=== PATIENT | male | born 1955 | race Caucasian/White ===

== ENCOUNTER 2016-03-20 08:05 | Observation (INO) | payer OTHER ==
[2016-03-20] VITALS (8 sets, daily range): BP systolic 122–150; BP diastolic 80–103; PULSE 74–96; RESP 12–21; O2SAT 90–97
[~2016-03-20] VITALS: Ht 180.3 cm; Wt 118.3 kg
[~2016-03-20 08:05] MED LIST: IBUP800T28 PO
--- NOTE | 2016-03-20 08:08 | ED.REPORT ---
HPI-Stroke / CVA Mar 20, 2016 ED Provider: Dr. Angeol Pt is a 60 year old male who presents to the ED via EMS with concerns for blurred vision, lateralizing weakness and a headache that started around 0500 this morning. He reports that he woke up this morning with a headache and got out of bed to get some Aleve. He reports that he then got on the computer and realized that he was unable to read the screen, which is not normal for him. Pt states that he went to go back to bed, and when he started walking he began to feel like he was going to faint. He states that he told his about his symptoms, and she gave him a couple of baby Aspirin. Once he called the EMS, he realized that his left arm was weak and tremulous. He denies any headache at the moment, and is now able to read appropriately. Nursing Notes Stated Complaint: R/O CVA Chief Complaint: Possible Stroke Nursing Notes Reviewed: Yes Allergies: Coded Allergies: Penicillins (Verified Allergy, Unknown, 01/24/14) Sulfa (Sulfonamide Antibiotics) (Verified Allergy, Unknown, 01/24/14) clindamycin (Verified Allergy, Unknown, 04/27/14) Scheduled PRN Ibuprofen (Ibuprofen) 800 Mg Tablet 800 MG PO TID PRN PRN For Pain (Reported) General Time Seen by Provider: 08:23 Chief Complaint Weakness, Vision, reduced, Dizziness Left-sided Hx Obtained From: Patient Arrived By: Ambulance Time last known well 05:30 Sudden in Onset?: Yes Context of Onset: During sleep Symptom Duration: Intermittent Progression Since Onset: Resolved Severity: Maximum: No pain Similar Sx Previous: Yes Risk Factors )( TPA Administration/Criteria Stroke Thrombolytic Therapy : TPA Considered: Yes Neurologist Contacted: Yes Disc Risk/Benefit/Alternatives: Yes TPA Administered Intravenously: No, not indicated NIH Stroke Scale Level of Consciousness: Alert and responsive (0) Ask Month & Age: Both questions right (0) Open/Close Eyes/Hand Vendor Quality Supervisor: Performs both tasks (0) Horizontal EO Movements: None (0) Visual Roberts: No visual loss (0) Facial Palsy: Normal symmetry (0) Right Arm Motor Drift (10s): No drift 10 sec (0) Left Arm Motor Drift (10s): Drift, not touch bed (1) Right Leg Motor Drift (5s): No drift 5 sec (0) Left Leg Motor Drift (5s): No drift 5 sec (0) Limb Ataxia FNF/Heel-Rader: Ataxia in 1 limb (1) (In left lower extremity) Sensation (Arms/Legs/Face): Pinprick less sharp (1) Language Aphasia: No aphasia, normal (0) Dysarthria: No dysarthria, normal (0) Extinction/Inattention: Inatt spatial/person (1) (Inattentive to left upper extremity) NIHSS Score: 4 Time NIHSS Performed: 08:32 Date NIHSS Performed: Mar 20, 2016 Past Medical History Past Medical History Denies Past Surgical History None Smoking History Never Smoker Ambulatory Status Independent Review of Systems Constitutional: Denies: Chills, Fever, Malaise, Weakness - generalized Respiratory: Denies: Non-productive cough, Shortness of breath, Wheezing Cardiovascular: Denies: Chest pain, Syncope GI: Denies: Abdominal pain, Constipation, Diarrhea, Nausea Musculoskeletal: Denies: Back pain, Neck pain Neurologic: Reports: Dizziness, Headache, Weakness, Denies: Change LOC Complete sys rev & neg: except as marked. Physical Exam Initial Vital Signs Vital Signs (First) Date Time Temp Pulse Resp B/P Pulse Ox O2 Delivery O2 Flow Rate FiO2 03/20/16 08:15 80 12 150/90 95 Room Air 03/20/16 08:47 36.9 See Paper Chart Initial VS: Reviewed ENT: Mucous membranes moist, Conjunctiva normal, No scleral icterus Abdomen / GI: Soft, Non-tender, No guarding, No rebound, No distention Skin: Warm, Dry, No cyanosis General/Constitutional: Awake, Alert, Well appearing, Cooperative Head / Eyes: Atraumatic, Normocephalic, PERRL, EOMI Neck: Atraumatic, Supple, Full range of motion Respiratory / Chest: Atraumatic, Breath sounds NL, Breath sounds = bilat, No respiratory distress Cardiovascular: Heart rate NL, Regular rhythm, Heart sounds NL, No gallop, No murmurs, No rubs Neurologic: Oriented X3, Speech NL, Memory NL NIH score of 4 - see risk section for details Blurred vision, left sided weakness and decreased sensation Interpretation & Diagnostics Lab Results Interpretation Result Diagram: 03/20/16 0821 03/20/16 0821 Test 03/20/16 08:21 03/20/16 09:04 White Blood Count 5.9th/mm3 (3.8-10.1) Red Blood Count 5.29mil/mm3 (4.40-5.80) Hemoglobin 16.1g/dL (13.8-17.2) Hematocrit 47.6% (41.0-50.0) Mean Corpuscular Volume 90.0fL (81-100) Mean Corpuscular Hemoglobin 30.4pg (27.0-35.0) Mean Corpuscular Hemoglobin Concent 33.8% (32.0-37.0) Red Cell Distribution Width 12.9% (12.3-15.4) Platelet Count 201bil/L (150-400) Neutrophils (%) (Auto) 48.8% (40-74) Lymphocytes (%) (Auto) 35.4% (14-46) Monocytes (%) (Auto) 8.0% (4-12) Eosinophils (%) (Auto) 5.8% (0-5) Basophils (%) (Auto) 1.5% (0-3) Prothrombin Time 9.6sec (8.1-12.5) Prothromb Time International Ratio 0.90ratio Activated Partial Thromboplast Time 24.9sec (22.8-33.0) Sodium Level 140mEq/L (134-144) Potassium Level 4.4mEq/L (3.5-5.2) Chloride Level 99mEq/L (97-108) Carbon Dioxide Level 26mmol/L (18-29) Blood Urea Nitrogen 20mg/dL (6-24) Creatinine 0.76mg/dL (0.76-1.27) Estimat Glomerular Filtration Rate 112mL/min (>59) Glucose Level 107mg/dL (60-99) Calcium Level 9.1mg/dL (8.5-10.1) Total Bilirubin 1.0mg/dL (0.0-1.2) Aspartate Amino Transf (AST/SGOT) 21U/L (0-50) Alanine Aminotransferase (ALT/SGPT) 25U/L (0-44) Alkaline Phosphatase 56U/L (25-160) Troponin T 0.010ug/L (0.0-0.011) Total Protein 7.2g/dL (6.4-8.4) Albumin 4.6g/dL (3.4-5.0) Urine Color Straw (YELLOW) Urine Appearance Hazy (CLEAR,HAZY) Urine pH 7.5 (5.0-8.0) Urine Specific [place] 1.010 (1.003-1.035) Urine Protein Negativemg/dL (NEG,TRACE) Urine Glucose (UA) Negativemg/dL (NEGATIVE) Urine Ketones Negativemg/dL (NEGATIVE) Urine Occult Blood Negative (NEGATIVE) Urine Nitrite Negative (NEGATIVE) Urine Bilirubin Negative (NEGATIVE) Urine Urobilinogen Normalmg/dL (NORMAL) Urine Leukocyte Esterase Negative (NEGATIVE) Urine RBC 0-2/hpf (0-2) Urine WBC 0-5/hpf (0-5) Urine Epithelial Cells Occasional/hpf (NONE-MOD) Urine Crystals None seen (NONE SEEN) Urine Bacteria None/hpf (NONE-FEW) Urine Hyaline Casts None/lpf (NONE) Urine Granular Casts None seen (NONE SEEN) Urine Waxy Casts None seen (NONE SEEN) Urine Red Blood Cell Casts None seen (NONE SEEN) Urine White Blood Cell Casts None seen (NONE SEEN) Urine Mucus None seen (None Seen) Urine Trichomonas None seen (NONE SEEN) Urine Yeast None (NONE SEEN) Urinalysis Comment None Urine Culture Reflexed Not indicated ECG Interpretation ECG Interpretation: SR - 93 Low voltage, extremity leads Time: 08:48 Interpreted by: ED physician CT Head Interpretation IMPRESSION: 1. No acute intracranial findings. 2. Mild findings likely associated with chronic microvascular ischemic changes. These findings were discussed with Dr. Angelo at 8:25 AM on 03/20/16. This study fulfills neurological imaging criteria for inclusion or exclusion of acute stroke therapies based on available published neurological guidelines. Dictated by: Carissa Crook M.D. on 03/20/2016 at 8:21 Interpretation / Wet Read by: Interpret - Radiologist Re-Eval/Medical Decision Source of Hx: Old records Re-Evaluation/Progress : Time of Eval: 08:40 Re-Evaluation/Progress Note: Pt is rechecked, he reports that his symptoms have resolved. Upon reexamination, his NIH stroke score is 0. TPA not indicated. Consultation #1: Referral / Consult Name: Eliud Chu MD Consulted With: Neurology Call Returned at: 08:38 Note: Spoke with neurology at [facility]. Agrees that TPA administation is appropriate. Consultation #2: Referral / Consult Name: Eliud Chu MD Call Returned at: 08:43 Pot Press Operator: Agrees with eval Note: Understands that pt is back to normal and TPA will not be administered. Consultation #3: Referral / Consult Name: Giancarlo Silvestre MD Consulted With: Hospitalist Call Returned at: 10:48 Pot Press Operator: Will see patient, Agrees with eval, Agrees with plan, Accepts admit Counseled Regarding: Diagnosis, Lab results, Need for admission Patient Discharge & Departure Impression: Primary Impression: CVA (cerebral vascular accident) CVA mechanism: unspecified Qualified Code: I63.9 - Cerebral infarction, unspecified Disposition: ADMITTED TO HOSPITAL Discharge Condition All VS Reviewed: Yes Condition: Improved Referrals: Ward Cline MD (PCP) Crit Care Except Billable Proc Time Spent: 75-104 minutes Services Performed: Patient management by me, Time spent at bedside, Reviewing test results, Reviewing imaging, Discussing patient care, Documentation in record, Time with fam/surrogate Scribe Attestation Portions of this note were transcribed by Melissa Blake and Karla Carpio. I, Dr. Angelo personally performed the history, physical exam and medical decision-making; I reviewed and confirmed the accuracy of the information in the transcribed note. Signed by: Melissa Blake and Roseann Vanegas, 2016 1050 copies to: Ward Cline MD, Kirk H MD Mar 20, 2016 08:08 CORRY BLAKE Mar 20, 2016 08:44 Karla Carpio Mar 20, 2016 10:51
[2016-03-20 08:23] LABS: BASOPHILS % (AUTO) 1.5 % (0-3); EOSINOPHILS % (AUTO) 5.8 % (0-5); Mean Corpuscular Hemoglobin 30.4 pg (27.0-35.0); NEUTROPHILS % (AUTO) 48.8 % (40-74); Platelet Count 201 bil/L (150-400)
--- NOTE | 2016-03-20 08:27 | DRSVH ---
PROCEDURE: CT BRAIN (TPA) ([id number]) INDICATIONS: Stroke TECHNIQUE: Noncontrast 4.5 mm thick angled axial sections acquired from the foramen magnum to the vertex, with c oronal reformats. COMPARISON: [facility], CT, BRAIN W/O CONTRAST, 02/09/2009, 2:29. FINDINGS: Image quality: Excellent. CSF spaces: Basal cisterns are patent. No extra-axial fluid collections. The ventricles are symmet donnie in size and shape. Brain: No intracranial bleeds or masses. There is cerebral volume loss for age, with resultant vent ricular and sulcal prominence. There are periventricular and deep white matter chronic small vessel ischemic changes. There is intracranial internal carotid artery atherosclerosis. Skull and face: Calvarium and visualized facial bones appear intact, without suspicious lesions. Sinuses: Visualized sinuses and mastoids are clear. IMPRESSION: 1. No acute intracranial findings. 2. Mild findings likely associated with chronic microvascular ischemic changes. These findings were discussed with Dr. Angelo at 8:25 AM on 03/20/16. This study fulfills neurological imaging criteria for inclusion or exclusion of acute stroke therapie s based on available published neurological guidelines. Dictated by: Carissa Crook M.D. on 03/20/2016 at 8:21 Approved by: Carissa Crook M.D. on 03/20/2016 at 8:25
[2016-03-20 08:40] LABS: INR 0.9 ratio
[2016-03-20 08:44] LABS: TROPONIN T 0.01 ug/L (0.0-0.011)
[2016-03-20 10:00] LABS: APPEARANCE,URINE HAZY (CLEAR,HAZY); COLOR,URINE STRAW (YELLOW); OCCULT BLOOD,URINE NEGATIVE (NEGATIVE); PH,URINE 7.5 (5.0-8.0); UROBILINOGEN,URINE NORMAL (NORMAL)
--- NOTE | 2016-03-20 10:05 | DRSVH ---
PROCEDURE: CT ANGIO HEAD AND NECK (P) INDICATIONS: intermittent left upper extremity weakness TECHNIQUE: Pre-contrast 4.5 mm thick sections acquired from the foramen magnum to the vertex. After the adminis tration of intravenous contrast, 1 mm thick sections acquired from the aortic arch through the [place] of [place]. Post-contrast 4.5 mm thick sections then re-acquired from the foramen magnum to the vert ex. 3-dimensional vcfeknn-qukcgwezp-dzqhyshsly (MIP) and/or volume rendering reformats were acquired of the central intracranial vasculature and neck separately. For radiation dose reduction, the foll owing was used: automated exposure control, adjustment of mA and/or kV according to patient size. COMPARISON: None. FINDINGS: Image quality: Excellent. BRAIN: CSF spaces: Ventricles are normal in size and shape. Basal cisterns are patent. No extra-axial flu id collections. Brain: No midline shift. No intracranial bleeds or masses. Cortes-white matter interface appears int act. Mild deep and periventricular white matter hypodensities are present suggesting mild chronic mi crovascular ischemic changes. Skull and face: Calvarium and facial bones appear intact, without suspicious lesions. Orbits appear normal. Sinuses: Sinuses and mastoids are clear. HEAD CT ANGIOGRAPHY: Anterior circulation: Intracranial internal carotid arteries are normal in size and flow. The flow within the paired anterior cerebral arteries is normal and symmetric. The flow within the middle cer ebral arteries is normal and symmetric. The anterior communicating artery is seen. No aneurysms are seen. Posterior circulation: Visualized portions of the vertebral arteries demonstrate normal caliber, and join to form a normal appearing basilar artery. Flow within the posterior cerebral arteries is norm al and symmetric. No aneurysms are seen. NECK CT ANGIOGRAPHY: Carotid system: The great vessels demonstrate a conventional anatomy as they arise from the aortic a rch. The origins of the common carotid arteries appear patent. The common carotid arteries demonstr ate normal caliber and courses. The bifurcation regions are both widely patent. The internal caroti d arteries demonstrate normal calibers and courses. Posterior circulation: The origins of the vertebral arteries both appear widely patent. The more espana perior extracranial portions of both vertebral arteries also demonstrate normal courses and calibers. They join to form a normal appearing basilar artery. Soft tissues: Visualized neck soft tissues demonstrate no suspicious abnormalities. Bones: No suspicious bony lesions. Visualized cervical spine appears normally aligned. IMPRESSION: 1. No acute intracranial findings. 2. Mild findings likely associated with chronic microvascular ischemic changes. 3. No stenosis, occlusion, or aneurysms of the head and neck. Dictated by: Carissa Crook M.D. on 03/20/2016 at 9:56 Approved by: Carissa Crook M.D. on 03/20/2016 at 10:03
[2016-03-20] MEDS ORDERED: Alum-Mag Hydrox-Simeth 30 mL Suspension PO PRN ×2 (11:00→13:00)
[2016-03-20] MEDS ORDERED: Ondansetron 2 mg/mL 2 mL Inj IVPUSH PRN (11:00)
--- NOTE | 2016-03-20 12:00 | NUR ---
admitted to room 3010 pt alert, talkative, states that all symptoms have resolved, no facial droop, equal optics engineer, pt stated he still had blurry vision, but later realized he had put on his 's glasses when he left the house this am. So all symptoms resolved
[2016-03-20] MEDS ORDERED: Labetalol 5 mg/mL 4 mL Inj IVPUSH PRN (13:00)
[2016-03-20] MEDS ORDERED: HYDROcodone-APAP 5-325 mg Tablet PO PRN (13:00)
[2016-03-20] MEDS ORDERED: Ondansetron 2 mg/mL 2 mL Inj IV PRN (13:00)
[2016-03-20] MEDS ORDERED: Polyethylene Glycol (PEG) 17 Gm Powder PO PRN (13:00)
--- NOTE | 2016-03-20 13:39 | PCM.HPMED ---
Subjective Date of Service Mar 20, 2016 Primary Provider: Admitting Physician: Giancarlo Silvestre MD Primary Care Physician: Ward Cline MD Attending Physician: Giancarlo Silvestre MD Admit Status: From the Emergency Department, 23-Hour Observation Chief Complaint: Left Arm Weakness, Blurred Vision History of Present Illness: Patient is a 60 year old male with a past medical history of obesity. He presents to the ER at [facility] this morning complaining of acutely blurred vision and left upper extremity weakness. Pt states his symptoms began this morning when he got out of bed. Pt states he walked over to the computer after waking up, and noticed his vision was blurry out of both eyes. Pt states he had difficulty reading any of the characters on the computer screen. Pt states he also felt significant weakness in his left arm and states he was unable to lift his left arm and that "it felt heavy". Pt states upon waking up from sleep this morning, he had a significant headache. He denies any chest pain or shortness of breath. Pt states he has also had transient dizziness today. Pt denies any facial droop or difficulty swallowing. Pt states he has never had any symptoms like this in the past. When he told his about the symptoms this morning, she gave him 162 mg of Aspirin and called 10-10- and pt was brought to hospital. In the ER, pts symptoms have completely resolved. He now reports his vision has normalized, he denies dizziness, and left upper extremity weakness. Pt state he is back to baseline. No other complaints or concerns at this time. Review of Systems: All systems reviewed and are negative except for what has already been discussed in the HPI. Allergies Coded Allergies: Penicillins (Verified Allergy, Unknown, 01/24/14) Sulfa (Sulfonamide Antibiotics) (Verified Allergy, Unknown, 01/24/14) clindamycin (Verified Allergy, Unknown, 04/27/14) Home Medications None PMH 1. Obesity Family History 1. Mother - CAD, [place] 2. Maternal Uncle - [place] Social History Hx Alcohol Use: No Hx Substance Use: No Smoking Status: Never Smoker Exam Vital Signs Vital Sign - Last Date Time Temp Pulse Resp B/P Pulse Ox O2 Delivery O2 Flow Rate FiO2 03/20/16 11:43 79 03/20/16 11:33 37.0 20 147/85 95 Room Air Exam GENERAL: NAD, Pt laying in bed comfortably HEENT: AT/NC, PERRLA, EOMI, MM moist CARDIAC: RRR, No M/R/G PULM: CTAB ABD: Soft, NT, ND, No hepatosplenomegaly present EXT: No C/C/E bilaterally, No calve tenderness bilateraly NEURO: Alert and oriented x3; Following all commands; 5/5 strength in bilateral upper and lower extremities; CN II-XII are grossly intact PSYCH: Normal mood and affect Lab and Diagnostics Result Diagram: 03/20/1682003/20/16820 X-Rays, CTs and MRIs CT BRAIN (TPA) INDICATIONS: Stroke TECHNIQUE: Noncontrast 4.5 mm thick angled axial sections acquired from the foramen magnum to the vertex, with coronal reformats. COMPARISON: [facility], CT, BRAIN W/O CONTRAST, 02/09/2009, 2:29. FINDINGS: Image quality: Excellent. CSF spaces: Basal cisterns are patent. No extra-axial fluid collections. The ventricles are symmetric in size and shape. Brain: No intracranial bleeds or masses. There is cerebral volume loss for age , with resultant ventricular and sulcal prominence. There are periventricular and deep white matter chronic small vessel ischemic changes. There is intracranial internal carotid artery atherosclerosis. Skull and face: Calvarium and visualized facial bones appear intact, without suspicious lesions. Sinuses: Visualized sinuses and mastoids are clear. IMPRESSION: 1. No acute intracranial findings. 2. Mild findings likely associated with chronic microvascular ischemic changes. Assessment & Plan Patient is a 60 year old male with a hx of obesity who is admitted to hospital for an Acute CVA. 1. Acute CVA - Present on admission - Symptoms have completely resolved now - Neuro checks - CT of the brain in negative - CT angiogram of the head and neck does not reveal any stenosis - Will order an MRI of the brain without contrast now - Will order an ECHO now - Check fasting lipid panel in AM - Pt has received a total of 324 mg of Aspirin today, will continue this daily - Start Atorvastatin 40 mg q HS now - Monitor BP closely, pt does not have a known hx of hypertension - PT/OT/ST evaluation - Telemetry monitoring 2. Obesity - Pt counseled to loose weight and to discuss this with his PCP 3. Disposition - Anticipate discharge to home in AM without any needs, depending on results of work-up and clinical course FULL CODE, per discussion with patient at bedside. Giancarlo Silvestre MD Mar 20, 2016 13:39
[2016-03-20] MEDS ORDERED: GLUC-207 PO (13:52)
[2016-03-20 13:54] LABS: TROPONIN T < 0.010 ug/L (0.0-0.011)
[2016-03-20 14:02] LABS: Magnesium 2.1 mg/dL (1.6-2.6)
[2016-03-20] MEDS: 0.9% Sodium Chloride 1,000 ML IV SCH ×2 (14:34→22:59)
--- NOTE | 2016-03-20 15:32 | NUR ---
Pt. screened and consulted with physical therapy. No OT needs. DC order
[2016-03-21 00:37] VITALS: BP 124/84; PULSE 62; RESP 18; O2SAT 97
[2016-03-21 05:03] VITALS: PULSE 69
[2016-03-21 06:17] VITALS: BP 127/84; PULSE 71; RESP 16; O2SAT 94
[2016-03-21 06:19] LABS: BASOPHILS % (AUTO) 1.6 % (0-3); EOSINOPHILS % (AUTO) 5.5 % (0-5); MONOCYTES % (AUTO) 7.4 % (4-12); Mean Corpuscular Hemoglobin 30.2 pg (27.0-35.0); Mean Corpuscular Volume 90.4 fL (81-100); NEUTROPHILS % (AUTO) 53.5 % (40-74); Platelet Count 196 bil/L (150-400)
--- NOTE | 2016-03-21 06:27 | NUR ---
neuro: pt A&OX3, neuro checks no deficits. pt mildly anxious about bed, otherwise cooperative with care. will continue to monitor.
[2016-03-21 06:48] LABS: TROPONIN T 0.01 ug/L (0.0-0.011)
[2016-03-21 08:00] VITALS: PULSE 83
[2016-03-21] MEDS: 0.9% Sodium Chloride 1,000 ML IV SCH (08:43)
--- NOTE | 2016-03-21 08:56 | NUR ---
Social Work: Screening Data: Pt is a 60 y/o male admitted for TIA. Pt's PCP is Dr Cline, pt's insurance is [employer]. EMR reviewed. No d/c planning needs anticipated at this time. INTERNATIONAL STUDENT COUNSELOR will continue to follow if needs arise. Assessment: Pt who is independent at baseline. Plan: Pt will d/c home via POV when medically stable. No d/c planning needs anticipated at this time. INTERNATIONAL STUDENT COUNSELOR will continue to follow if needs arise. FRANCISCA Otto
[2016-03-21] MEDS ORDERED: ATOR20TA65 PO (09:55)
[2016-03-21] MEDS ORDERED: ASPI325T32 PO (09:55)
[2016-03-21 10:25] VITALS: BP 140/96; PULSE 68; RESP 18; O2SAT 95
--- NOTE | 2016-03-21 10:27 | DRSVH ---
PROCEDURE: MRI BRAIN WITHOUT CONTRAST ([id number]) INDICATIONS: TIA TECHNIQUE: Noncontrast axial T1 spin echo, axial T2 fast spin echo, sagittal and axial FLAIR, coronal T2 fast sp in echo, axial gradient echo, axial diffusion and ADC through the brain. COMPARISON: None. FINDINGS: Image quality: Excellent. CSF Spaces: Basal cisterns are patent. No extra-axial fluid collections. Ventricles are normal in size and shape. Brain: No intracranial masses or hemorrhage. Cortes/white matter interface is normal. Brainstem appe ars normal. Diffusion-weighted images demonstrate no acute ischemic insult. No chronic ischemic ins ults. Normal intravascular flow voids are present. Skull and face: Calvarium has normal marrow signal. Orbits appear normal. Sinuses: Sinuses and mastoids are clear. IMPRESSION: 1. No acute intracranial findings. Specifically, no acute or subacute infarct. Dictated by: Carissa Crook M.D. on 03/21/2016 at 10:14 Approved by: Carissa Crook M.D. on 03/21/2016 at 10:25
[2016-03-21] MEDS ORDERED: Ondansetron 2 mg/mL 2 mL Inj IVPUSH PRN (11:00)
--- NOTE | 2016-03-21 11:19 | DRSVH ---
Located Within [facility] [address] [place] [address] Echocardiogram Report Name: KUSH MEJIA RStudy Date : 03/21/2016 Height: 71 in Hospital Exam Location: [facility] Weight: 261 lb Gender: Male BSA: 2.4 m2 : 1955 Age: 60 yrs BP: 127/84 mmHg Reason For Study: EVAL STROKE F/U Ordering Physician: HOSPITALIST [facility] Performed By: Jackelin Delgado Referring Physician: Dr. Ward Cline Interpretation Summary Patient possibly has an allergic reaction to Definity contrast Left ventricular wall thickness is mildly increased. Left ventricular systolic function is normal. Left ventricular ejection fraction is estimated to be 60%. Cannot exclude hypokinesis along the inferior or inferolateral wall. Consider myocardial perfusion study to evaluate for ischemia. Assessment of diastolic parameters indicates a relaxation abnormality of the left ventricle, consistent with normal filling pressures. The right ventricle is normal in size and function. Pulmonary artery pressures cannot be estimated because of the lack of a measurable TR jet velocity. Both atria are normal in size. Injection of contrast documented no interatrial shunt. There is no Doppler evidence for an atrial septal defect. There is no significant valvular heart disease. The aortic root is mildly dilated. The ascending aorta is mildly enlarged. Procedure: A two-dimensional transthoracic echocardiogram with color flow and Doppler was performed. The subcostal views were difficult to obtain and are suboptimal in quality. The apical views were difficult to obtain and are suboptimal in quality. A contrast injection of Definity was performed to improve assessment of LV function. Contrast was injected into an intravenous site in the right arm. A total of 5 cc of contrast was given. A saline contrast injection was performed to assess for cardiac shunting. There is no prior echocardiogram noted for this patient. The patient was in normal sinus rhythm during the exam. The patient did well with the Definity Contrast. Left Ventricle: The left ventricle is normal in size. Left ventricular wall thickness is mildly increased. Left ventricular systolic function is normal. Left ventricular ejection fraction is estimated to be 60%. Cannot exclude hypokinesis along the inferior or inferolateral wall. Consider myocardial perfusion study to evaluate for ischemia. Assessment of diastolic parameters indicates a relaxation abnormality of the left ventricle, consistent with normal filling pressures. Right Ventricle: The right ventricle is normal in size and function. Atria: Both atria are normal in size. Injection of contrast documented no interatrial shunt. There is no Doppler evidence for an atrial septal defect. Mitral Valve: The mitral valve leaflets appear normal. There is no evidence of stenosis, fluttering, or prolapse. There is trace mitral regurgitation. Aortic Valve: The aortic valve is trileaflet. The aortic valve opens well. No aortic regurgitation is present. Tricuspid Valve: The tricuspid valve leaflets are thin and pliable. There is a trace or physiologic amount of tricuspid regurgitation. Pulmonary artery pressures cannot be estimated because of the lack of a measurable TR jet velocity. Pulmonic Valve: The pulmonic valve is not well seen, but is grossly normal. There is no pulmonic valvular regurgitation. There is no significant valvular heart disease. Great Vessels: The aortic root is mildly dilated. The ascending aorta is mildly enlarged. The pulmonary artery is normal size. The IVC is of normal diameter and collapses greater than 50% with a sniff. This suggests a low right atrial pressure of 3 mm Hg. Pericardium/ Pleura There is no pericardial effusion. There is no pleural effusion. MMode/2D Measurements & Calculations LVIDd: 5.5 cm LA dimension: 4.9 cm RA long axis LVOT diam: 2.3 cm LVIDs: 3.8 cm AoV Opening FS: 31.4 % LA A2 area: 22.8 cm RA area EPSS: 0.75 cm LA A4 area: 21.1 cm Ao root diam IVSd: 1.2 cm LA length (vol) : 15.9 cm LVPWd: 1.3 cm RA vol asc Aorta Diam LA vol: 69.1 ml : 43.1 ml LA vol index RA Ao Arch Diam (Prox : 18.3 mm/ Trans): 2.7 cm RVDd major IVC diam: 1.7 cm : 6.9 cm LV landry. diameter/BSA LV sys. diameter/BSA RVD2 (mid) (cm/m^2): 2.3 (cm/m^2): 1.6 : 3.1 cm Doppler Measurements & Calculations Ao V2 max MV E max mauricio MV E/A: 0.62 PA V2 max : 148.3 cm/sec : 45.9 cm/sec Med Peak E' Mauricio : 102.4 cm/sec Ao max PG MV A max mauricio PA mean PG : 8.8 mmHg : 74.1 cm/sec E/E' med: 11.8 Ao mean PG MV P1/2t: 76.4 msec Lat Peak E' Mauricio PA Accel Time : 0.11 sec LVOT Max Mauricio E/E' lat: 7.3 : 114.7 cm/sec E/e' average: 9.5 SHORTY(I,D): 3.4 cm Pulm A Revs Dur sev ratio MV A dur: 0.14 sec MV dec time MV P1/2t max mauricio Ao V2 mean LV V1 max PG : 0.25 sec : 105.6 cm/sec Ao V2 VTI: 26.4 cm LV V1 VTI MVA(P1/2t): 2.9 cm2 : 21.6 cm SHORTY(V,D): 3.2 cm2 PA V2 mean SHORTY indexed to BSA Pulm A Revs Dur - MV A : 73.3 cm/sec (cm^2/m^2): 1.4 Dur: 0.01 msec Reading Physician:ALEXUS
--- NOTE | 2016-03-21 14:09 | PCM.DIMED ---
Lindsey Sotelo DO 03/21/16 1002: Discharge Instructions Date of Service Mar 21, 2016 Dates of Hospitalization Mar 20, 2016 at 10:55 Discharge Diagnosis Discharge Diagnosis Transient ischemic attack Medication Instructions Take atorvastatin at night before bed Take a regular aspirin 325 mg daily. Test Results CT scan of the brain showed no acute intracranial finding, mild findings likely associated with chronic microvascular ischemic changes CT angiogram confirmed the same and also showed no stenosis, occlusion, or aneurysm of the head and neck Echocardiogram recommends having a myocardial perfusion scan or your heart- A treadmill stress test MRI shows no evidence of acute stroke. Diet Heart Healthy Activity No restrictions Call your provider Fever or Chills, Shortness of breath, Chest pain, Excessive diarrhea, Weakness ( unilateral) Patient Instructions Return to normal activity, take prescriptions as prescribed. Discuss weight loss with your primary care provider as this will help with her overall health and well-being. Call 911 and return to the emergency department with any signs of one-sided weakness, slurred speech, facial droop, or confusion Follow-up plan See your PCP in 1-2 weeks. We recommend a treadmill stress test to further evaluate the health of your heart. Follow-up Provider: Ward Cline MD Follow-up with PCP in: 2 weeks Giancarlo Silvestre MD 03/22/16 1413: Lindsey Sotelo DO Mar 21, 2016 10:02 Giancarlo Silvestre MD Mar 22, 2016 14:13
--- NOTE | 2016-03-21 15:14 | NUR ---
Social Work: Discharge Data: Pt is on day 1 of hospitalization. EMR reviewed. Pt d/c orders are in. PT recommending home. No d/c planning needs anticipated at this time. [employer] will continue to follow if needs arise. Assessment: Pt who is independent at baseline. Plan: Pt will d/c home via POV today. No d/c planning needs anticipated at this time. [employer]ANT will continue to follow if needs arise. FRANCISCA Otto
--- NOTE | 2016-03-21 15:20 | NUR ---
Discharge reviewed d/c instructions with pt including care notes and new prescription, pt signed and given originals, copies to chart. IV d/c intact, tele removed. VS stable and normal at time of d/c. All belongings packed by pt and spouse in room. Pt walked off unit accompanied by spouse and friend with all belongings.
--- NOTE | 2016-03-21 17:42 | PCM.DC.MED ---
Discharge Summary Date of Service Mar 21, 2016 Dates of Hospitalization Date of Hospital Admission Mar 20, 2016 at 10:55 Date of Discharge: Mar 21, 2016 Providers: Admitting Physician: Giancarlo Silvestre MD Primary Care Physician: Ward Cline MD Attending Physician: Giancarlo Silvestre MD Diagnosis at Time of Discharge Diagnosis at Time of Discharge 1.Transient ischemic attack 2. Obesity Procedures XRay, CTs & MRIs CT BRAIN (TPA) IMPRESSION: 1. No acute intracranial findings. 2. Mild findings likely associated with chronic microvascular ischemic changes. CT ANGIO HEAD AND NECK (P) IMPRESSION: 1. No acute intracranial findings. 2. Mild findings likely associated with chronic microvascular ischemic changes. 3. No stenosis, occlusion, or aneurysms of the head and neck. Dictated by: Carissa Crook M.D. on 03/20/2016 at 9:56 MRI BRAIN WITHOUT CONTRAST ([id number]) IMPRESSION: 1. No acute intracranial findings. Specifically, no acute or subacute infarct. Dictated by: Carissa Crook M.D. on 03/21/2016 at 10:14 Cardiac Echo Impression Echocardiogram Report Interpretation Summary Patient possibly has an allergic reaction to Definity contrast Left ventricular wall thickness is mildly increased. Left ventricular systolic function is normal. Left ventricular ejection fraction is estimated to be 60%. Cannot exclude hypokinesis along the inferior or inferolateral wall. Consider myocardial perfusion study to evaluate for ischemia. Assessment of diastolic parameters indicates a relaxation abnormality of the left ventricle, consistent with normal filling pressures. The right ventricle is normal in size and function. Pulmonary artery pressures cannot be estimated because of the lack of a measurable TR jet velocity. Both atria are normal in size. Injection of contrast documented no interatrial shunt. There is no Doppler evidence for an atrial septal defect. There is no significant valvular heart disease. The aortic root is mildly dilated. The ascending aorta is mildly enlarged. Brief History History of present illness on admission: Patient is a 60 year old male with a past medical history of obesity. He presents to the ER at [facility] this morning complaining of acutely blurred vision and left upper extremity weakness. Pt states his symptoms began this morning when he got out of bed. Pt states he walked over to the computer after waking up, and noticed his vision was blurry out of both eyes. Pt states he had difficulty reading any of the characters on the computer screen. Pt states he also felt significant weakness in his left arm and states he was unable to lift his left arm and that "it felt heavy". Pt states upon waking up from sleep this morning, he had a significant headache. He denies any chest pain or shortness of breath. Pt states he has also had transient dizziness today. Pt denies any facial droop or difficulty swallowing. Pt states he has never had any symptoms like this in the past. When he told his about the symptoms this morning, she gave him 162 mg of Aspirin and called and pt was brought to hospital. In the ER, pts symptoms have completely resolved. He now reports his vision has normalized, he denies dizziness, and left upper extremity weakness. Pt state he is back to baseline. No other complaints or concerns at this time. Hospital Course Patient is a 60 year old male with a hx of obesity who is admitted to hospital for an Acute CVA. 1. Acute CVA- transient ischemic attack - Present on admission - Symptoms have completely resolved now - Neuro checks have all been negative - CT of the brain in negative - CT angiogram of the head and neck does not reveal any stenosis - MRI of the brain without contrast shows no acute intracranial findings. Specifically no acute or subacute infarcts - Echo as above recommend outpatient stress test - fasting lipid panel revealed elevated triglycerides and LDL - Aspirin 325 mg daily - Atorvastatin 40 mg q HS - PT/OT/ST evaluations all unremarkable 2. Obesity - Pt counseled to loose weight and to discuss this with his PCP Exam Vital Signs (Last) Date Time Temp Pulse Resp B/P Pulse Ox O2 Delivery O2 Flow Rate FiO2 03/21/16 10:25 36.5 68 18 140/96 95 Room Air Exam General: No acute distress, well-developed, well-nourished, appropriately interactive HEENT: Normocephalic, atraumatic. External ears without defect. Anicteric sclerae, moist conjunctivae, and no lid lag. Oropharynx free of erythema with moist mucosa. Neck: Supple with full range of motion. No jugular venous distension. No lymphadenopathy or thyromegaly. Cardiovascular: Regular rate and rhythm with no murmurs, rubs, or gallops appreciated Pulmonary: Clear to auscultation bilaterally with no crackles, wheezes, or rhonchi. Normal respiratory effort with no use of accessory muscles. Abdomen: Bowel tones present. Soft, nontender, nondistended. No hepatosplenomegaly or masses appreciated. Extremities: No clubbing, cyanosis, edema, or lymphadenopathy appreciated. Skin: Normal temperature, turgor, and texture; no rash, ulcers, or subcutaneous nodules appreciated. Neurological: Cranial nerves grossly intact. Normal muscle strength, tone, and bulk. No gait impairment. Psychiatric: Normal mood and affect. Alert and oriented to person, place, and time. Test 03/20/16 08:21 03/20/16 09:04 03/20/16 13:17 03/21/16 06:02 Prothrombin Time 9.6sec (8.1-12.5) Prothromb Time International Ratio 0.90ratio Activated Partial Thromboplast Time 24.9sec (22.8-33.0) Urine Color Straw (YELLOW) Urine Appearance Hazy (CLEAR,HAZY) Urine pH 7.5 (5.0-8.0) Urine Specific Lamar 1.010 (1.003-1.035) Urine Protein Negativemg/dL (NEG,TRACE) Urine Glucose (UA) Negativemg/dL (NEGATIVE) Urine Ketones Negativemg/dL (NEGATIVE) Urine Occult Blood Negative (NEGATIVE) Urine Nitrite Negative (NEGATIVE) Urine Bilirubin Negative (NEGATIVE) Urine Urobilinogen Normalmg/dL (NORMAL) Urine Leukocyte Esterase Negative (NEGATIVE) Urine RBC 0-2/hpf (0-2) Urine WBC 0-5/hpf (0-5) Urine Epithelial Cells Occasional/hpf (NONE-MOD) Urine Crystals None seen (NONE SEEN) Urine Bacteria None/hpf (NONE-FEW) Urine Hyaline Casts None/lpf (NONE) Urine Granular Casts None seen (NONE SEEN) Urine Waxy Casts None seen (NONE SEEN) Urine Red Blood Cell Casts None seen (NONE SEEN) Urine White Blood Cell Casts None seen (NONE SEEN) Urine Mucus None seen (None Seen) Urine Trichomonas None seen (NONE SEEN) Urine Yeast None (NONE SEEN) Urinalysis Comment None Urine Culture Reflexed Not indicated Magnesium Level 2.1mg/dL (1.6-2.6) White Blood Count 5.7th/mm3 (3.8-10.1) Red Blood Count 5.30mil/mm3 (4.40-5.80) Hemoglobin 16.0g/dL (13.8-17.2) Hematocrit 47.9% (41.0-50.0) Mean Corpuscular Volume 90.4fL (81-100) Mean Corpuscular Hemoglobin 30.2pg (27.0-35.0) Mean Corpuscular Hemoglobin Concent 33.4% (32.0-37.0) Red Cell Distribution Width 13.0% (12.3-15.4) Platelet Count 196bil/L (150-400) Neutrophils (%) (Auto) 53.5% (40-74) Lymphocytes (%) (Auto) 31.6% (14-46) Monocytes (%) (Auto) 7.4% (4-12) Eosinophils (%) (Auto) 5.5% (0-5) Basophils (%) (Auto) 1.6% (0-3) Sodium Level 141mEq/L (134-144) Potassium Level 4.6mEq/L (3.5-5.2) Chloride Level 103mEq/L (97-108) Carbon Dioxide Level 25mmol/L (18-29) Blood Urea Nitrogen 14mg/dL (6-24) Creatinine 0.70mg/dL (0.76-1.27) Estimat Glomerular Filtration Rate 123mL/min (>59) Glucose Level 106mg/dL (60-99) Calcium Level 9.1mg/dL (8.5-10.1) Total Bilirubin 1.3mg/dL (0.0-1.2) Aspartate Amino Transf (AST/SGOT) 17U/L (0-50) Alanine Aminotransferase (ALT/SGPT) 23U/L (0-44) Alkaline Phosphatase 56U/L (25-160) Troponin T 0.010ug/L (0.0-0.011) Total Protein 6.7g/dL (6.4-8.4) Albumin 4.6g/dL (3.4-5.0) Triglycerides Level 229mg/dL (0-149) Cholesterol Level 195mg/dL (100-199) LDL Cholesterol, Calculated 109.200mg/dL (0-99) VLDL Cholesterol 45.800mg/dL HDL Cholesterol 40mg/dL (>39) Cholesterol/HDL Ratio 4.88 (0.0-4.4) Discharge Medications Discharge Medications Aspirin (Aspirin) 325 Mg Tablet 325 MG PO DAILY Prescribed by: LINDSEY GUEVARA DO Atorvastatin Calcium (Atorvastatin Calcium) 20 Mg Tablet 40 MG PO HS Prescribed by: LINDSEY GUEVARA DO Gluc/MSM/C/Mark/Manganese/Micaela (Joint Support Complex Softgel) 500-100 Mg Capsule 2 EACH PO DAILY (Reported) As needed Ibuprofen (Ibuprofen) 800 Mg Tablet 800 MG PO TID PRN PRN For Pain (Reported) Additional med instructions Take atorvastatin at night before bed Take a regular aspirin 325 mg daily. Followup Plan Disposition: Discharge home Follow-up plan See your PCP in 1-2 weeks. We recommend a treadmill stress test to further evaluate the health of your heart. Discharge Diet: Heart Healthy Discharge Activity: No restrictions Patient Instructions Return to normal activity, take prescriptions as prescribed. Discuss weight loss with your primary care provider as this will help with her overall health and well-being. Call 911 and return to the emergency department with any signs of one-sided weakness, slurred speech, facial droop, or confusion Follow-up Provider: Ward Cline MD Follow-up with PCP in: 2 weeks Attending Statement The patient was seen and examined together with Dr. Guevara on 03/21/2016 and I agree with the history, exam and plan as outlined in the note above. Lindsey Guevara DO Mar 21, 2016 17:42 Giancarlo Silvestre MD Mar 22, 2016 14:18
[2016-05-09] MEDS ORDERED: CHOL200025 PO (14:35)
[2016-05-09] MEDS ORDERED: CALC600T12 PO (14:35)
[2016-05-09] MEDS ORDERED: LORA1TAB PO (14:35)
[2016-05-09] MEDS ORDERED: ASPI-973 PO (14:35)
[2016-05-09] MEDS ORDERED: OMEG100T PO (14:35)
[2016-05-09] MEDS ORDERED: CHOL200047 PO (14:35)
[2016-05-09] MEDS ORDERED: ASCO-294 PO (14:35)
[2016-05-12] MEDS ORDERED: BIOT5TAB PO (10:02)
== END 2016-03-21 15:16 | disposition home or self-care (01) ==
LOC: EDSEX → SED 08:05 → EDBD 08:05 → EDSEX 08:05 → MPC 10:55
PROVIDERS: ADMIT Family Medicine; ATTEND Family Medicine
DX: H53.8 Other visual disturbances (principal); R53.1 Weakness; G45.9 Transient cerebral ischemic attack, unspecified; E66.9 Obesity, unspecified; Z79.82 Long term (current) use of aspirin
CPT/HCPCS: 36415; 70450; 70496; 70498; 70551; 80053; 80061; 81000; 82948; 83735; 84484; 85025; 85610; 85730; 92610; 93005; 97161; 99291; 99292; C8929; G0378; J7030; Q9957; Q9967